=== PATIENT | female | born 1990 | race African-American/Black ===

== ENCOUNTER 2019-12-10 10:05 | Inpatient (IN) ==
[2019-12-10] MEDS ORDERED: ONDANSETRON 4 MG/2 ML VIAL IV PRN ×2 (10:14→19:16)
[2019-12-10 10:36] LABS: Basophils % 0.2 % (0.0-0.8); Eosinophils % 0.5 % (0.00-10.9); Hematocrit 31.5 VOL% (35.7-47.0); Hemoglobin 9.7 GM/DL (12.0-16.0); Immature Granulocytes % 0.5 %; Immature Granulocytes Absolute 0.03 #; Lymphocytes # 1.3 10*3/uL (1.4-4.0); Lymphocytes % 20.2 % (21.3-54.2); Mean Corpuscular HGB Conc 30.8 GM/DL (32-36); Mean Corpuscular Volume 82.9 FL (87-102); Mean Platelet Volume 9.1 FL (9.6-12.0); Neutrophils % 71.6 % (38.7-73.9); Platelet Count 286 T/CUMM (130-400); Red Cell Distribution Width 14.8 % (9.3-17.3); White Blood Count 6.4 T/CUMM (4-12)
[2019-12-10] MEDS ORDERED: BUTORPHANOL 1 MG/ML VIAL IV PRN (11:03)
[2019-12-10] MEDS ORDERED: BUTORPHANOL 2 MG/ML VIAL IV PRN (11:04)
[2019-12-10 11:17] LABS: PT Patient Result 10.4 SECS (9.8-11.9); Partial Thromboplastin Time 27.5 SECS (23.9-33.8)
[2019-12-10 11:20] LABS: Albumin 2.8 G/DL (3.4-5.0); Bilirubin,Total 0.7 MG/DL (0.2-1.0); Calcium 8.8 MG/DL (8.5-10.1); Osmolality,Calculated 268.8 MOS/KG (273-304); Total Protein 7.8 G/DL (6.4-8.3); Uric Acid 4.4 MG/DL (2.6-6.0)
[2019-12-10] MEDS ORDERED: CITRIC ACID/SODIUM CITRATE 30 ML UDCUP PO ONE (14:58)
[2019-12-10] MEDS ORDERED: ePHEDrine 50 MG/ML VIAL IV PRN (14:58)
[2019-12-10] MEDS ORDERED: PROMETHAZINE 25 MG/1 ML VIAL IM PRN (14:58)
[2019-12-10] MEDS ORDERED: diphenhydrAMINE 50 MG/1 ML VIAL IV PRN (14:58)
[2019-12-10] MEDS ORDERED: FAMOTIDINE 20 MG/2 ML VIAL IV ONE (14:58)
[2019-12-10] MEDS ORDERED: hydrOXYzine HCL 25 MG/1 ML VIAL IM PRN (14:58)
[2019-12-10] MEDS ORDERED: LACTATED RINGERS 1,000 ML IV ONE (14:58)
[2019-12-10] MEDS ORDERED: NALOXONE 0.4 MG/ML VIAL IV PRN (14:58)
[2019-12-10] MEDS ORDERED: LACTATED RINGERS 1,000 ML IV SCH (15:00)
[2019-12-10] MEDS ORDERED: OXYTOCIN/LR 20 UNIT/1,000 ML BAG IV SCH (15:00)
[2019-12-10] MEDS ORDERED: fentaNYL 2 MCG/ROPIV 0.2% EPID 100 ML EPIDURAL SCH (15:00)
[2019-12-10 17:10] LABS: Apearance,Urine CLEAR (Clear); Bilirubin,Urine Negative (Negative); Blood, Urine Negative (Negative); Glucose,Urine (UA) Negative (Negative); Ketones,Urine 80 mg/dL (Negative); Nitrite,Urine Negative (Negative); Protein,Urine Negative; Squamous Epithelial Cell,Urine Occasional /HPF (0-10); Urine Color Straw (Yellow); Urine Specific Gravity 1.005 (1.001-1.035); Urine Urobilinogen < 2.0 EU/DL (0.2-1.0)
[2019-12-10] MEDS ORDERED: CARBOPROST TROMETHAMINE 250 MCG/ML AMP IM ONE (17:54)
[2019-12-10] MEDS ORDERED: METHYLERGONOVINE 0.2 MG/1 ML AMP ONE (17:54)
[2019-12-10] MEDS ORDERED: miSOPROStoL 200 MCG TABLET ONE (17:54)
[2019-12-10] MEDS ORDERED: TRANEXAMIC ACID 1,000 MG/10 ML VIAL ONE (17:54)
[2019-12-10] MEDS ORDERED: OXYTOCIN/LR 20 UNIT/1,000 ML BAG IV ONE ×2 (17:54→19:16)
[2019-12-10] MEDS ORDERED: SODIUM CHLORIDE 0.9% 100 ML IV ONE (17:55)
[2019-12-10] MEDS ORDERED: MEASLES/MUMPS/RUBELLA VACCINE 0.5 ML VIAL SUBCUT ONE (19:16)
[2019-12-10] MEDS ORDERED: WITCH HAZEL PADS 100/JAR TOP PRN (19:16)
[2019-12-10] MEDS ORDERED: LANOLIN 50% CREAM 0.3 OZ TUBE TOP PRN (19:16)
[2019-12-10] MEDS ORDERED: oxyCODONE/ACETAMINOPHEN 5-325 MG TABLET PO PRN ×2 (19:16)
[2019-12-10] MEDS ORDERED: RHO(D) IMMUNE GLOBULIN 300 MCG SYRINGE IM ONE (19:16)
[2019-12-10] MEDS ORDERED: BENZOCAINE 20%/MENTHOL 0.5% SPRAY 56 GM CAN TOP PRN (19:16)
[2019-12-10] MEDS ORDERED: DIPH/TET/ACEL PERT BOOSTER VACCINE 0.5 ML VIAL IM ONE (19:16)
[2019-12-10] MEDS ORDERED: BISACODYL 10 MG SUPP RECTAL PRN (19:16)
[2019-12-10] MEDS ORDERED: ACETAMINOPHEN 325 MG TABLET PO PRN (19:16)
[2019-12-10] MEDS ORDERED: HYDROCORTISONE 2.5% RECTAL CREAM 30 GM TUBE TOP PRN (19:16)
[2019-12-10 19:29] LABS: Cord Venous Blood HCO3 20.4 MMOL/L; Cord Venous Blood PCO2 42.8 MMHG; Cord Venous Blood PO2 49.3
[2019-12-10] MEDS: IBUPROFEN 800 MG TABLET PO PRN (23:11)
[2019-12-10] MEDS: DOCUSATE SODIUM 100 MG CAPSULE PO SCH (23:11)
[2019-12-11 06:16] LABS: Basophils % 0.2 % (0.0-0.8); Eosinophils # 0.1 10*3/uL (0.0-0.87); Eosinophils % 0.5 % (0.00-10.9); Hematocrit 30.1 VOL% (35.7-47.0); Hemoglobin 9.5 GM/DL (12.0-16.0); Immature Granulocytes % 0.5 %; Immature Granulocytes Absolute 0.05 #; Lymphocytes # 1.8 10*3/uL (1.4-4.0); Lymphocytes % 16.7 % (21.3-54.2); Mean Corpuscular HGB Conc 31.6 GM/DL (32-36); Mean Corpuscular Volume 82.2 FL (87-102); Mean Platelet Volume 9.8 FL (9.6-12.0); Monocytes % 7.9 % (1.7-12.7); Neutrophils % 74.2 % (38.7-73.9); Platelet Count 260 T/CUMM (130-400); Red Blood Count 3.66 MC/CUMM (3.8-5.5); Red Cell Distribution Width 14.9 % (9.3-17.3); White Blood Count 10.7 T/CUMM (4-12)
[2019-12-11] MEDS: IBUPROFEN 800 MG TABLET PO PRN (06:28)
[2019-12-11] MEDS: amLODIPine 10 MG TABLET PO SCH (07:20)
[2019-12-11] MEDS: DOCUSATE SODIUM 100 MG CAPSULE PO SCH ×2 (08:28→21:07)
[2019-12-11] MEDS: carvediloL 12.5 MG TABLET PO SCH (21:06)
[2019-12-12] MEDS: IBUPROFEN 800 MG TABLET PO PRN (01:18)
[2019-12-12 07:22] VITALS: BP 134/85
[2019-12-12] MEDS: carvediloL 12.5 MG TABLET PO SCH (09:21)
[2019-12-12] MEDS: DOCUSATE SODIUM 100 MG CAPSULE PO SCH (09:21)
[2019-12-12] MEDS: amLODIPine 10 MG TABLET PO SCH (09:21)
== END 2019-12-12 12:00 | disposition home or self-care (01) | DRG 807 ==
LOC: N.LDOUT 10:05 → N.LD 10:07 → N.OB 22:34
PROVIDERS: ADMIT Obstetrics & Gynecology; ATTEND Obstetrics & Gynecology